=== PATIENT | male | born 1965 | race Caucasian/White ===

== ENCOUNTER 2017-05-02 11:31 | Emergency (ER) | payer OTHER ==
[~2017-05-02] VITALS: Ht 188 cm; Wt 99.0 kg
[2017-05-02] MEDS ORDERED: KEFLEX500 MG PO (13:45)
[2017-05-02 14:07] VITALS: BP 138/74
== END 2017-05-02 14:08 | disposition home or self-care (01) ==
LOC: EME 11:31
DX: S51.812A Laceration without foreign body of left forearm, initial encounter (principal); W26.0XXA Contact with knife, initial encounter; Y99.0 Civilian activity done for income or pay; Z23 Encounter for immunization
CPT/HCPCS: 99281; 99284